=== PATIENT | male | born 1945 ===

== ENCOUNTER 2017-04-11 06:13 | Day surgery (SDC) | payer MEDICARE, MEDICAID ==
[2017-04-10 08:54] VITALS: BMI 27.3
[2017-04-11] MEDS ORDERED: ceFAZolin IV 1 gm in Dextrose 1 GM/50 ML BAG IVPB ONE (07:21)
[2017-04-11] MEDS ORDERED: Lidocaine 2% Inj (20ml) ONE (07:22)
[2017-04-11] MEDS: Lidocaine 1% Inj (20ml) ONE ×2 (07:31→07:45)
[2017-04-11] MEDS: Bupivacaine HCl 0.5% PF (10 ml) Inj ONE ×2 (07:32→07:45)
[2017-04-11] MEDS ORDERED: Propofol 10 mg/ml Inj (20 ML) ONE (07:43)
[2017-04-11] MEDS ORDERED: Midazolam 2 MG/2 ML VIAL ONE (07:44)
[2017-04-11] MEDS ORDERED: Succinylcholine Chloride 20 mg/ml Syr (5 ml) IV ONE (07:52)
[2017-04-11] MEDS ORDERED: Bacitracin 50,000 UNIT in Sodium Chloride 0.9% Irrig 1,000 ML IR SCH (08:00)
[2017-04-11] MEDS ORDERED: Neostigmine Methylsulfate 3mg/3ml Syringe IV ONE (08:52)
[2017-04-11] MEDS ORDERED: HYDROmorphone 0.5 mg/0.5 ml ISec IVP PRN (09:23)
[2017-04-11] MEDS ORDERED: Oxycodone/Acetaminophen 5/325 mg Tab PO PRN ×2 (09:25)
--- NOTE | 2017-04-11 09:28 | PCM.SURG1 ---
Surgeon's Initial Post Op Note - Surgeon's Notes Surgeon: Kristian Flux Tube Attendant: Maria M PGY 3, Carolyn PGY 2 Type of Anesthesia: General LMA Pre-Operative Diagnosis: left achilles rupture Operative Findings: See dictation Post-Operative Diagnosis: Same Operation Performed: Left percutaenous repair of achilles with [employer] PARS system Specimen/Specimens Removed: none Estimated Blood Loss: EBL {In ML}: 5 Blood Products Given: N/A Drains Used: No Drains Post-Op Condition: Good Date of Surgery/Procedure: 04/11/17 Time of Surgery/Procedure: 09:27
[2017-04-11] MEDS ORDERED: Albuterol 0.083% Inhal Sol (2.5 mg/3 mL) UD INH ONE (10:15)
[2017-04-11] MEDS ORDERED: Albuterol 0.083% Inhal Sol (2.5 mg/3 mL) UD ONE (10:20)
[2017-04-11] MEDS ORDERED: Bupivacaine HCl 0.25% PF (10 ml) Inj ONE (11:19)
[2017-04-11] MEDS ORDERED: Lidocaine Hydrochloride 5 ML INJ ONE (11:21)
--- NOTE | 2017-04-11 12:18 | PCM.ANESB2 ---
Popliteal Nerve Block - Popliteal Nerve Block Date of Procedure: 04/11/17 Anesthesiologist: Moiz Pre-Procedure Diagnosis: s/p left achilles tendon repair Procedure Performed: Popliteal Nerve Block Left - Procedure Popliteal Nerve Block: This procedure was explained to the patient that it is for post-operative pain management. Consent was obtained after a thorough discussion with the patient regarding the benefits and possible complications of local anesthetic block of the sciatic nerve at the popliteal level. The patient lying supine with monitors applied. Time-out was held with the circulating nurse to confirm the correct surgery and the appropriate block. After applying oxygen by nasal cannula, patient's operative leg was gently raised and supported and the groove in between the biceps femoris and vastus lateralis muscles was carefully palpated. The skin approximately 8cm above the popliteal crease was then marked. The ultrasound transducer was then applied to the posterior thigh approximately 8cm above the popliteal crease in the transverse plane and the sciatic nerve before its division was visualized lateral to the popliteal artery and in between the bicep femoris and semimembranosus/semitendinosus muscles. After identification, the lateral portion of the thigh was prepped with chloraprep solution and 2mL of Lidocaine 1% was injected subcutaneously for topical anesthesia. At this point, a # 21 gauge Stimuplex insulated 4 inch needle was inserted into pre-marked area and advanced in a perpendicular direction. The needle was inserted above the ultrasound transducer in-plane towards the sciatic nerve in a [id number] direction. Needle advancement was performed carefully under direct ultrasound visualization. Nerve stimulator was used and dorsiflexion of the left foot was elicited at a current of 0.5MA. After repeated negative aspiration, 5cc of 0.25% Bupivacaine was injected and this was flowed with 15cc of 0.25%Bupivacaine. Under ultrasound guidance the local anesthetics were observed surrounding sciatic nerve . The needle was removed intact and sterile dressing was applied. The patient tolerated the popliteal nerve block well with stable vital signs.
[2017-04-11 12:41] VITALS: BP 120/60; PULSE 88; RESP 18; TEMP 97.9; O2SAT 95
--- NOTE | 2017-04-17 08:49 | OP ---
PROCEDURE DATE: 04/11/2017 PREOPERATIVE DIAGNOSIS: Left foot Achilles tendon rupture. POSTOPERATIVE DIAGNOSIS: Left foot Achilles tendon rupture. PROCEDURE PERFORMED: Left foot percutaneous Achilles tendon repair with utilization of [employer] PARS system. SURGEON: Bob Pérez DPM MAT MACHINE TENDER: Obdulio Franz, PGY-3 ANESTHESIA ADMINISTERED BY: Dr. Hurt TYPE OF ANESTHESIA: General LMA. INDICATIONS: The patient is a 71-year-old male with the above-mentioned diagnosis. The patient exhausted all forms of conservative treatment and at this time and wished to have surgical intervention for the conditions listed above. After careful explanation of risks, benefits, and complications for the proposed procedure, the patient signed the consent form. No guarantees were given or implied at this time. Prior to taking the patient to the OR, n.p.o.. status was verified and preoperative antibiotics were given. DESCRIPTION OF PROCEDURE: Patient was brought to the operating room table and placed on the operating table in prone position. A pneumatic ankle tourniquet was placed in the patient's left thigh at 35 mmHg. Following induction of general sedation, the left foot and ankle was prepped and draped in normal sterile manner and the procedure began. Procedure #1: Left foot, left Achilles tendon repair with utilization of [employer] PARS system. At this time, the attention was directed to the posterior aspect of the patient's left Achilles where with manual palpation, a was felt roughly 4 cm from the insertion to the posterior calcaneus. At this time, with the utilization of 15 blade, a small transverse incision measuring roughly 1.5 cm was made across the site, roughly 1 cm distal towards the ____ at this time. The paratenon was visible and with freer elevator was passed around the paratenon to make sure it was completely free of all adhesions surrounding it. There was noted to be a small hematoma overlying the area which was then flushed in the surgical field and utilization of #15 blade, a paratenon was transected transversally, cleanly without complication. At this time, a freer elevator was then passed up the sides of the paratenon and around dorsally to free the paratenon from the Achilles tendon. At this time, with utilization of the PARS jig from the [employer] system, the jig was passed. The two arms of the jig was passed proximally up the paratenon towards the flush, against the Achilles tendon and at this time, a series of meals were then passed from medial to lateral 3D PARS jig system as described in the [employer] manual to allow for a walking stitch to be placed across the Achilles tendon percutaneously. Following passing the needles across the jig, the jig was then removed which allowed for the sutures to be pulled from outside to inside and to allow for the closure of the tendon percutaneously. At this time, the tendon was then dorsiflexed and plantarflexed and with the use of suture tails which were not exiting from the Achilles tendon and the sutures were noted to be anchored into the proximal part of the tip very well and without complications. So at this time, two small stab incisions were made at the insertion point of Achilles tendon on the calcaneus and was drilled to allow for insertion of a bone anchor. At this time the banana passer was passed from the stab incisions to the Achilles tendon exiting in midsubstance in the Achilles tendon in the most distal part of the rupture. The suture leads were passed one by one through each of the stab incisions from proximal to distal exiting out through the stab incision. The ankle was then completely plantarflexed and the suture anchors were placed into the calcaneus allowing for a knotless compressive repair of the Achilles tendon. The extra suture was then cut without complications. Following this, the wound was flushed with copious amounts of normal sterile saline. The wound was noted to be in nice interaction and the tendon was in good reapproximation, so at this time, the paratenon was then repaired with 4-0 Vicryl, and the wound was closed with 4-0 Vicryl and 4-0 nylon in a normal sterile manner. POSTOPERATIVE CONDITION: Patient tolerated the anesthesia and procedure well and was transported to the recovery room with vital signs stable and neurovascular status intact to the left foot and ankle. This patient will follow up with Dr. Pérez in his office as previously discussed. Obdulio Franz DPM Bob Pérez DPM
== END 2017-04-11 13:07 | disposition home or self-care (01) ==
LOC: C.SDS 06:13
PROVIDERS: ATTEND Podiatrist Foot & Ankle Surgery
DX: M66.872 Spontaneous rupture of other tendons, left ankle and foot (principal); S86.012A Strain of left Achilles tendon, initial encounter; Y99.9 Unspecified external cause status
CPT/HCPCS: 27650; 82948; 97116; 97161; G8978; G8979; G8980; J0690; J2405; J2704; J2710; J2765; J3010